=== PATIENT | female | born 1980 | race Caucasian/White ===

== ENCOUNTER 2016-10-09 01:19 | Emergency (ER) | payer OTHER ==
[~2016-10-09] VITALS: Ht 157.5 cm; Wt 81.0 kg
[2016-10-09 01:26] VITALS: Ht 157.5 cm; Wt 81.0 kg
[2016-10-09] MEDS ORDERED: morphine 4 MG/ML VIAL IV STA (02:37)
--- NOTE | 2016-10-09 02:37 | ERD ---
ER Documentation Chief Complaint Date/Time DATE: 10/09/16 TIME: 02:32 Chief Complaint KEARNS all day, worst headache ever HPI 36-year-old female presents emergency department for frontal headache. Stated that this is the worst headache of her life. Headache started around 12:30 AM. She also stated that her normal blood pressure was 90 over 50s. Also reports chest discomfort. Denies head injury, loss of consciousness, dizziness, blurry vision, changes in vision, photophobia, facial pain, ear pain, throat pain, difficulty swallowing, neck pain, shoulder pain, cough, hemoptysis, abdominal pain, back pain, loss of appetite, nausea, vomiting, hematochezia, diarrhea, constipation, urinary symptoms, , the possibility of being , bladder and bowel incontinences, extremity weakness, extremity tenderness, numbness or tingling sensation, difficulty walking, recent travel, recent exposure to illness, recent antibiotic use in the last 3 months, fever, chills. Allergies to nitrofurantoin. No past medical history. Surgical history: Appendectomy. Medication: Turmeric ([id number]). Family history: Stated that both of her grandparents from her father's side has history of stroke. Also family history of hypertension. Social: Not working at this time. Denies smoking, use of alcohol, use illegal drugs. LMP: August. A0. ROS All systems reviewed and are negative except as per history of present illness. Medications Home Meds Active Scripts Acetaminophen* (Tylophen*) 500 Mg Capsule, 1 CAP PO Q6H Y for PAIN AND OR ELEVATED TEMP, #20 CAP Prov:TOÑITO CALDERON 10/09/16 Ibuprofen* (Motrin*) 800 Mg Tab, 800 MG PO Q8, #30 TAB Prov:TOÑITO CALDERON 10/09/16 Ondansetron (Ondansetron Odt) 4 Mg Tab.rapdis, 4 MG PO Q8 Y for NAUSEA AND/OR VOMITING, #20 TAB Prov:TOÑITO CALDERON 10/09/16 Cephalexin* (Keflex*) 500 Mg Capsule, 500 MG PO QID for 5 Days, CAP Prov:TOÑITO CALDERON 10/09/16 Reported Medications [None] No Conflict Check 05/05/10 Allergies Allergies: Coded Allergies: No Known Drug Allergy (Verified Allergy, Mild, 1/17/13) Nitrofurantoin (Verified Allergy, SWELLING, 08/16/12) Nitrofurantoin Macrocrystal (Verified Allergy, SWELLING, 08/16/12) PMhx/Soc History of Surgery: Yes (APPENDECTOMY) Anesthesia Reaction: No Hx Neurological Disorder: No Hx Respiratory Disorders: No Hx Cardiac Disorders: No Hx Psychiatric Problems: No Hx Miscellaneous Medical Probl: No Hx Alcohol Use: No Hx Substance Use: No Hx Tobacco Use: No Smoking Status: Never smoker Physical Exam Vitals Vital Signs Date Time Temp Pulse Resp B/P Pulse Ox O2 Delivery O2 Flow Rate FiO2 10/09/16 03:58 66 20 110/59 99 Room Air 10/09/16 01:26 98.3 82 24 180/88 100 Physical Exam CONSTITUTIONAL: Well-appearing; well-nourished; in no apparent distress. HEAD: Normocephalic; atraumatic. EYES: Conjunctiva clear, sclera non-icteric, EOM intact. PERRL Ears: Hearing intact. EACs clear, TMs non-bulging, non-inflamed, translucent & mobile, ossicles normal appearance, No obstructions, no erythema, no discharges Nose: No obstructions. No polyps. No external lesions. Mucosa non-inflamed. No external lesions, septum and turbinates normal. No rhinorrhea. No discharges. Frontal sinus is non-tender to palpation. Maxillary sinus is non-tender to palpation. MOUTH: Moist mucous membranes, no lesion, no obstructions, no vesicles, no thrush, patent airway Throat: Uvula in midline. Right tonsil is +1 with no erythema, no exudate. Left tonsil is +1 with no erythema, no exudate. Tolerating secretions well. Good gag reflex. Patent airway. Neck: Supple, without lesions, bruits, or adenopathy. No mass. Thyroid non- enlarged and non-tender to palpation. CHEST: Symmetrical chest. Respirations even and not labored. No retractions noted. CARDIOVASCULAR: Normal S1, S2. RRR. No murmurs, gallops. RESPIRATORY: Normal chest excursion with respiration; breath sounds clear and equal bilaterally; no wheezes, rhonchi, or rales. Breathing even and unlabored. Speaking in clear, full, and complete sentences w/ ease. ABDOMEN: Normal bowel sounds normal. Soft, round, non-distended, non-guarding, no tenderness, no rebound, no organomegaly, no masses, no pulsating abdominal mass. No hernia. No peritoneal signs. : No CVA tenderness. BACK: Symmetrical shoulder. Spine is midline without deformity, tenderness. No evidence of trauma or deformity. PELVIS: Stable pelvis. No evidence of trauma or deformity. MUSCULOSKELETAL: Normal gait and station. No misalignment, asymmetry, crepitation, defects, tenderness, masses, effusions, decreased range of motion, instability, atrophy or abnormal strength or tone in the head, neck, spine, ribs , pelvis or extremities. No calf tenderness. NEUROVASCULAR: Distal pulses are present. Pedal pulse are present, equal, and normal. Capillary refills are < 2 seconds. NEUROLOGIC: Alert and oriented x4. Speaks full and clear sentences. Cranial Nerves II-XII normal. Sensation to pain, touch, and proprioception normal. Grossly unremarkable. No neurologic deficits. Romberg test is negative. PSYCHOLOGICAL: The patients mood and manner are appropriate. No hallucinations , delusions. Not SI. Not HI. Has the capacity to decide for self SKIN: Normal for age and ethnicity; warm; dry; good turgor; no apparent lesions or exudates. No rashes, hives, discoloration. Intact. Result Diagram: 10/09/16 0251 10/09/16 0251 Results 24 hrs Laboratory Tests Test 10/09/16 02:50 10/09/16 02:51 10/09/16 02:58 Urine Color STRAW Urine Clarity CLEAR Urine pH 6.0 Urine Specific [place] 1.006 Urine Ketones NEGATIVEmg/dL Urine Nitrite NEGATIVEmg/dL Urine Bilirubin NEGATIVEmg/dL Urine Urobilinogen NEGATIVEmg/dL Urine Leukocyte Esterase TRACELeu/ul Urine Microscopic RBC 1/HPF Urine Microscopic WBC 1/HPF Urine Squamous Epithelial Cells FEW/HPF Urine Bacteria FEW/HPF Urine Hemoglobin 1+mg/dL Urine Glucose NEGATIVEmg/dL Urine Total Protein NEGATIVEmg/dl Urine Test NEGATIVE White Blood Count 8.410^3/ul Red Blood Count 4.4110^6/ul Hemoglobin 12.4g/dl Hematocrit 36.5% Mean Corpuscular Volume 82.8fl Mean Corpuscular Hemoglobin 28.1pg Mean Corpuscular Hemoglobin Concent 34.0g/dl Red Cell Distribution Width 13.3% Platelet Count 31791^3/UL Mean Platelet Volume 11.4fl Neutrophils % 65.0% Lymphocytes % 27.4% Monocytes % 6.0% Eosinophils % 0.8% Basophils % 0.4% Nucleated Red Blood Cells % 0.0/100WBC Neutrophils # 5.410^3/ul Lymphocytes # 2.310^3/ul Monocytes # 0.510^3/ul Eosinophils # 0.110^3/ul Basophils # 0.010^3/ul Nucleated Red Blood Cells # 0.010^3/ul Prothrombin Time 13.5Sec Prothrombin Time Ratio 1.1 INR International Normalized Ratio 1.03 Activated Partial Thromboplast Time 29.7Sec Sodium Level 138mmol/L Potassium Level 3.6mmol/L Chloride Level 101mmol/L Carbon Dioxide Level 27mmol/L Anion Gap 14 Blood Urea Nitrogen 10mg/dl Creatinine 0.73mg/dl Glucose Level 128mg/dl Calcium Level 10.4mg/dl Total Bilirubin 0.1mg/dl Direct Bilirubin 0.00mg/dl Indirect Bilirubin 0.1mg/dl Aspartate Amino Transf (AST/SGOT) 37IU/L Alanine Aminotransferase (ALT/SGPT) 91IU/L Alkaline Phosphatase 38IU/L Troponin I < 0.012ng/ml Total Protein 8.1g/dl Albumin 5.2g/dl Globulin 2.90g/dl Albumin/Globulin Ratio 1.79 Bedside Urine pH (LAB) 6.0 Bedside Urine Protein (LAB) Negative Bedside Urine Glucose (UA) Negative Bedside Urine Ketones (LAB) Negative Bedside Urine Blood Negative Bedside Urine Nitrite (LAB) Negative Bedside Urine Leukocyte Esterase (L Negative Current Medications Medications (Trade) Dose Ordered Sig/Jame Route PRN Reason Start Time Stop Time Status Last Admin Dose Admin Diphenhydramine HCl (Benadryl) 25 mg ONCE ONCE IV 10/09/16 03:00 10/09/16 03:01 DC 10/09/16 03:08 Metoclopramide HCl (Reglan) 10 mg ONCE ONCE IV 10/09/16 03:00 10/09/16 03:01 DC 10/09/16 03:08 Morphine Sulfate (morphine) 4 mg ONCE STAT IV 10/09/16 02:37 10/09/16 02:39 DC 10/09/16 03:09 Procedures/MDM Examination: Please see physical examination. Disease process, medical treatment was explained to the patient and family member. They verbalized understanding and agreed with the diagnostic tests, medical treatment, and follow-up care. EKG: Normal sinus rhythm with a ventricular rate of 77 bpm. No evidence of acute myocardial infarction. No evidence of ischemia. Radiology: CT of the brain Impression: No acute intracranial abnormality identified. Visual acuity: Reviewed. Blood works: Reviewed. Urine hCG is negative. Urinalysis: UTI. Treatment: IV insertion. Normal saline IV. Reglan IV. Benadryl IV. Morphine IV. Re-evaluation: Denies headache, dizziness, blurry vision, neck pain, shoulder pain, chest pain, back pain, abdominal pain, nausea, vomiting. No episode of emesis in the emergency department. Alert and oriented 4. Speaks full and clear sentences. Respirations even and unlabored. Lung sounds clear to auscultation. Active bowel sounds. There is no right upper/right lower/ epigastric/left upper/left lower abdominal tenderness and light and deep palpation. Negative on Rovsings sign. Negative Ab sign. Able to jump 5 times without developing right-sided abdominal pain. No peritoneal signs. Ambulatory with steady gait. No neurovascular deficits. No neurological deficits. Romberg test negative. Consultation: None. Differential diagnosis: Subarachnoid hemorrhage versus meningitis versus stroke versus sinusitis viral syndrome versus upper respiratory infection versus urinary tract infection Medical decision makin-year-old female presents emergency department for frontal headache. Stated that this is the worst headache of her life. Headache started around 12:30 AM. She also stated that her normal blood pressure was 90 over 50s. Also reports chest discomfort. Patient's complaint, patient's history about her complaint, my physical findings, diagnostic test results, my reevaluation are consistent with final diagnosis of headache, urinary tract infection. Medications prescribed are the following: Keflex. Tylenol. Zofran. Motrin. Patient and family member are made aware of the side effects and adverse reactions of the medications prescribed. Instructed on when to seek emergent and medical attention in case allergic/anaphylactic reactions or severe side effects and or adverse reactions to medications. Patient and family member verbalized understanding. Patient instructed Instructed to follow-up with his PCP in 24-48 hours. Instructed to Call 911 for chest pain, shortness of breath. Advised to come back here in ED as soon as possible for severity of symptoms which includes but not limited to: any new symptoms; shortness of breath/difficulty of breathing; cardiovascular changes; severe gastrointestinal symptoms; signs and symptoms of bleeding and or infection; signs of compartment syndrome/neurovascular changes; neurological changes/deficits. Patient and family member verbalized understanding. Upon discharge, patient is alert and oriented x 4, speaks full and clear sentences, denies pain, has no neurological deficits, has no neurovascular deficits, difficulty of breathing. Breathing even and unlabored. Lung sounds are clear to auscultation. Not in distress. Appears comfortable. Ambulatory with steady gait. Appears satisfied with care provided here in ED. Departure Diagnosis: Primary Impression: Headache Additional Impression: UTI (urinary tract infection) Condition: Stable Additional Instructions: Instructed to follow-up with his PCP in 24-48 hours. Instructed to Call 911 for chest pain, shortness of breath. Advised to come back here in ED as soon as possible for severity of symptoms which includes but not limited to: any new symptoms; shortness of breath/difficulty of breathing; cardiovascular changes; severe gastrointestinal symptoms; signs and symptoms of bleeding and or infection; signs of compartment syndrome/neurovascular changes; neurological changes/deficits. Patient and family member verbalized understanding. TOÑITO CALDERON Oct 09, 2016 02:37
[2016-10-09 02:53] LABS: URINE BLOOD (Dip) POC Negative (NEGATIVE)
[2016-10-09] MEDS ORDERED: DIPHENHYDRAMINE 50 MG INJ IV ONE (03:00)
[2016-10-09] MEDS ORDERED: METOCLOPRAMIDE 10 MG INJ IV ONE (03:00)
[2016-10-09 03:16] LABS: ADD SCAN DIFF NO
--- NOTE | 2016-10-09 03:18 | RADRPT ---
PROCEDURE: CT brain without contrast. CLINICAL INDICATION: Headache. TECHNIQUE: CT scan of the brain was performed on a multi-detector high-resolution CT scanner. Co ntiguous axial images were obtained from the skull base to the vertex without intravenous contrast. Coronal and sagittal reformatted images were also obtained. Images were reviewed on the PACS works tation. One or more of the following dose reduction techniques were used: - Automated exposure control. - Adjustment of the mA and/or kV according to patient size. - Use of iterative reconstruction technique. Exam CTD/vol = 41.88 mGy. Total exam DLP = 720.23 mGy-cm. COMPARISON: None. FINDINGS: The ventricles and cortical sulci are within normal limits for patient's age. There are no areas of abnormal attenuation within the brain parenchyma. There is no mass effect or midline shift. There is no intracranial hemorrhage or abnormal extra-axial collection. The calvarium is intact. There is no evidence of fracture. Visualized paranasal sinuses and mastoid air cells are clear. IMPRESSION: No acute intracranial abnormality identified. .Kendrick Rudoplh MD, Date Time Electronically viewed and signed by .Kendrick Rudolph MD, on 10/09/2016 03:17 .T/
[2016-10-09 03:24] LABS: BASOPHILS % 0.4 % (0.0-2.0); EOSINOPHILS # 0.1 10^3/ul (0.0-0.5); EOSINOPHILS % 0.8 % (0.0-7.0); HEMATOCRIT 36.5 % (37.0-47.0); HEMOGLOBIN 12.4 g/dl (12.0-16.0); LYMPHOCYTES # 2.3 10^3/ul (0.8-2.9); LYMPHOCYTES % 27.4 % (15.0-51.0); MEAN CORPUSCULAR HEMOGLOBIN 28.1 pg (29.0-33.0); MEAN CORPUSCULAR VOLUME 82.8 fl (82.0-101.0); MEAN PLATELET VOLUME 11.4 fl (7.4-10.4); MONOCYTE # 0.5 10^3/ul (0.3-0.9); NEUTROPHIL # 5.4 10^3/ul (1.6-7.5); PLATELET COUNT 191 10^3/UL (140-415); RED BLOOD COUNT 4.41 10^6/ul (4.20-5.40); RED CELL DISTRIBUTION WIDTH 13.3 % (11.5-14.5); WHITE BLOOD COUNT 8.4 10^3/ul (4.8-10.8)
[2016-10-09 03:28] LABS: ADD UMIC YES; UR ASCORBIC ACID NEGATIVE (NEGATIVE); UR BACTERIA FEW /HPF (NONE SEEN); UR BILIRUBIN (Dip) NEGATIVE (NEGATIVE); UR BLOOD (Dip) 1+ mg/dL (NEGATIVE); UR CLARITY CLEAR (CLEAR); UR COLOR STRAW (YELLOW); UR GLUCOSE (Dip) NEGATIVE (NEGATIVE); UR KETONES (Dip) NEGATIVE (NEGATIVE); UR LEUKOCYTE ESTERASE (Dip) TRACE Leu/ul (NEGATIVE); UR NITRITE (Dip) NEGATIVE (NEGATIVE); UR RBC 1 /HPF (0-5); UR SPECIFIC GRAVITY (Dip) 1.006 (1.003-1.030); UR SQUAMOUS EPITHELIAL CELL FEW /HPF (FEW); UR TOTAL PROTEIN (Dip) NEGATIVE (NEGATIVE); UR UROBILINOGEN (Dip) NEGATIVE (NEGATIVE)
[2016-10-09 03:32] LABS: INR 1.03; PROTIME 13.5 Sec (12.2-14.2); PT RATIO 1.1
[2016-10-09 03:33] LABS: PARTIAL THROMBOPLASTIN TIME 29.7 Sec (25.0-35.0)
[2016-10-09 03:40] LABS: ALANINE AMINOTRANSFERASE 91 IU/L (13-69); ALBUMIN 5.2 g/dl (3.3-4.9); ALBUMIN/GLOBULIN RATIO 1.79; ALKALINE PHOSPHATASE 38 IU/L (42-121); ANION GAP 14 (8-16); ASPARTATE AMINO TRANSFERASE 37 IU/L (15-46); BILIRUBIN,INDIRECT 0.1 mg/dl (0-1.1); BILIRUBIN,TOTAL 0.1 mg/dl (0.2-1.3); BLOOD UREA NITROGEN 10 mg/dl (7-20); CALCIUM 10.4 mg/dl (8.4-10.2); CARBON DIOXIDE 27 mmol/L (21-31); CHLORIDE 101 mmol/L (97-110); CREATININE 0.73 mg/dl (0.44-1.00); GLUCOSE 128 mg/dl (70-220); POTASSIUM 3.6 mmol/L (3.5-5.1); SODIUM 138 mmol/L (135-144); TOTAL PROTEIN 8.1 g/dl (6.1-8.1)
[2016-10-09 03:52] LABS: TROPONIN-I < 0.012 ng/ml (0.00-0.12)
[2016-10-09 03:58] VITALS: BP 110/59; PULSE 66; RESP 20
[2016-10-09] MEDS ORDERED: CEPH-443 PO (04:09)
[2016-10-09] MEDS ORDERED: IBUP800T25 PO (04:15)
[2016-10-09] MEDS ORDERED: ONDA4TAB14 PO (04:15)
[2016-10-09] MEDS ORDERED: ACET500C5 PO (04:16)
== END 2016-10-09 04:39 | disposition home or self-care (01) ==
LOC: FTE 01:19
DX: R51 Headache (principal); N39.0 Urinary tract infection, site not specified; R07.89 Other chest pain
CPT/HCPCS: 70450; 80053; 81001; 84484; 84703; 85025; 85610; 85730; 93005; J1200; J2270; J2765; 81003; 96374; 96375

== ENCOUNTER 2018-01-12 17:11 | Emergency (ER) | END 2018-01-12 21:06 | disposition home or self-care (01) ==